=== PATIENT | female | born 1960 | race African-American/Black ===

== ENCOUNTER 2023-07-13 10:42 | Outpatient (AMB) | payer MEDICARE, MEDICAID, SELFPAY ==
--- NOTE | 2023-07-13 10:49 | A.OFFVIS_ITS ---
Intake VS Expanded 07/13/23 10:50 07/13/23 11:17 Height 5 ft 5 in 5 ft 5 in Weight 210 lb 12.191 oz 211 lb BMI 35.1 35.1 Intake Visit Reasons: DM/LVM Allergies glipizide Allergy (Severe, Verified 07/14/23 13:57) Anaphylaxis insulin lispro [From Humalog U-100 Insulin] Allergy (Intermediate, Verified 07/14/23 13:57) uticaria insulin detemir [From Levemir U-100 Insulin] Allergy (Verified 07/14/23 13:57) hives, uticaria, puritus prednisone Adverse Reaction (Unknown, Verified 07/14/23 13:57) itchiness metformin Adverse Reaction (Verified 07/14/23 13:57) Numbness penicilin Allergy (Unknown, Uncoded 07/14/23 13:57) hives peanut derived Allergy (Uncoded 07/14/23 13:57) Itching HPI Nutrition Presentation Details Pt presents for MNT for T2DM. 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 Herrera at [place] [facility] she is on Tresiba 40 units in AM and 60 in PM and Trulicity 1.5 mg/wk Pt reports monitoring blood sugar in am, BG ranging from 80-140s - did not bring to this appt Sometimes has low bg below 70 and treats by having glass of juice and p.b crackers Typical meal B: coffee with flavored cream with bread and crackers (before 7 am) 9 am bread or yogurt and water L: 11:30 soup (yellow yam, dumpling, beans, noodles , chicken or beef) coconut water or water 4:30 pm: fruit or coffee or juice dinner: [place] noodles with chicken, water or juice food frequency fish: not including fruits: 0-1/d fried foods : 1x/w eating out 1x/wk vegetables: starchy mainly dairy: yogurt 3/wk, pastries: 1/d [id number]-Cm.Jeor Equation Height 5 ft 5 in Weight 211 lb Resting Metabolic Rate 1521.96 Calculated Activity Level Sedentary Calories Needed to Maintain Weight 1826.35 Diagnosis Nutrition problem #1 excessive energy intake As related to (etiology) #1 diagnosis As evidenced by (sign/symptom) #1 knowledge deficit of diet Monitoring/Goals Nutrition problem monitoring level of knowledge/skill and oral fluids Nutrition goal/outcome list 3 CHO foods Outcome progress verbalized understanding Learning/Education Readiness to learn good Stages of change preparation Educational materials provided Yes (meal planning ) Most Recent Diabetes Results: No Data to Display Assessment & Plan Assessment & Plan (1) T2DM (type 2 diabetes mellitus): Code(s): E11.9 - Type 2 diabetes mellitus without complications Plan: Wt: 96 Kg ( 06/2023 ) Est kcal needs as per MSJ: 1800 (40% carb, 30% protein/fat) Est fluid needs as per 30 ml/d: 2900 Est prot per day as per 1 g/kg bw: 96 Recommend fiber intake : 8-10 g per day and gradually increase to 25-28 g per day for women and 35-38 g for men or as tolerated Recommend sodium intake per day : less than 2000 mg Educated patient on: ( R = reviewed V = verbalizes understanding N/R = needs review N/A = not applicable * Food sources of carbohydrate, adequate serving sizes and its role in various health conditions: R * Differences between complex carbohydrates a simple carbohydrates, role of fiber in diet: R * Lean protein sources of foods: R * Differences between types of fats and role in diet (mono on saturated fat fatty acids, saturated fatty acids, trans fats): N/R * Food sources of sodium in salt and healthy modifications for heart health in kidney health: NR * Vitamins and minerals: N/R * Healthy plate method concept: R * Physical activity: Benefits a precaution: N/R * Hypoglycemia protocol (rule of 15): R, V- rule of 15 * Dietary prevention of Hyperglycemia: R Patient Instructions: Reduce on total carb to less than 60 g at a meal Dilute juice with water, working on reducing sugar from beverages Treat low blood sugar (sugar less than 70) with 1/2 cup of juice (15 g of carbs) , wait 15 minutes and recheck your blood sugar. Repeat treatment If blood sugar continues below 70. Notify your doctor of any low blood sugar for further assessment Coding Level of Care Code Nutr Indiv Intake (31373) Diagnoses T2DM (type 2 diabetes mellitus) E11.9 Time Spent (min) 30
[2023-07-13 10:50] VITALS: BMI 35.1
[2023-07-14 14:03] VITALS: BMI 35.1
== END 2023-07-13 11:42 | disposition home or self-care (01) ==
PROVIDERS: PCP Internal Medicine; Visit Provider Dietitian, Registered
DX: E11.9 Type 2 diabetes mellitus without complications (principal)

== ENCOUNTER → 2023-07-13 10:42 | Outpatient (BNVA) | payer MEDICARE, MEDICAID, SELFPAY | PROVIDERS: PCP Internal Medicine; Visit Provider Dietitian, Registered | DX: E11.9 Type 2 diabetes mellitus without complications (principal) | CPT/HCPCS: 97802 ==

== ENCOUNTER 2023-08-24 10:54 | Outpatient (AMB) | payer MEDICARE, MEDICAID, SELFPAY ==
[2023-08-24 11:03] VITALS: BMI 34.7
--- NOTE | 2023-08-24 11:03 | A.OFFVIS_ITS ---
Intake VS Expanded 08/24/23 11:03 Height 5 ft 5 in Weight 208 lb 12.444 oz BMI 34.7 Intake Visit Reasons: T2DM/LVM Allergies glipizide Allergy (Severe, Verified 07/14/23 13:57) Anaphylaxis insulin lispro [From Humalog U-100 Insulin] Allergy (Intermediate, Verified 07/14/23 13:57) uticaria insulin detemir [From Levemir U-100 Insulin] Allergy (Verified 07/14/23 13:57) hives, uticaria, puritus prednisone Adverse Reaction (Unknown, Verified 07/14/23 13:57) itchiness metformin Adverse Reaction (Verified 07/14/23 13:57) Numbness penicilin Allergy (Unknown, Uncoded 07/14/23 13:57) hives peanut derived Allergy (Uncoded 07/14/23 13:57) Itching Medication List - Last Reconciled 08/24/[address], LDN insulin degludec (Tresiba FlexTouch U-100 insulin) 100 units subcut DAILY HPI Nutrition Presentation Details Pt presents for MNT f/u for T2DM Patient reports working on meal planning and following healthy plate method every day. 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 Pt reports takign Tresiba 40 units in AM and 60 units in PM Trulicity once a week 1.5 wk Pt reports trying meal replacement but dd not like Today will review low-sodium concepts Most Recent Diabetes Results: No Data to Display Assessment & Plan Assessment & Plan (1) T2DM (type 2 diabetes mellitus): Code(s): E11.9 - Type 2 diabetes mellitus without complications Plan: Wt: 96 Kg ( 06/2023 ) 95 kg ( 08/2023) Est kcal needs as per MSJ: 1800 (40% carb, 30% protein/fat) Est fluid needs as per 30 ml/d: 2900 Est prot per day as per 1 g/kg bw: 96 Recommend fiber intake : 8-10 g per day and gradually increase to 25-28 g per day for women and 35-38 g for men or as tolerated Recommend sodium intake per day : less than 2000 mg Educated patient on: ( R = reviewed V = verbalizes understanding N/R = needs review N/A = not applicable * Food sources of carbohydrate, adequate serving sizes and its role in various health conditions: R * Differences between complex carbohydrates a simple carbohydrates, role of fiber in diet: R * Lean protein sources of foods: R * Differences between types of fats and role in diet (mono on saturated fat fatty acids, saturated fatty acids, trans fats): N/R * Food sources of sodium in salt and healthy modifications for heart health in kidney health: NR * Vitamins and minerals: N/R * Healthy plate method concept: R * Physical activity: Benefits a precaution: N/R * Hypoglycemia protocol (rule of 15): R, V- rule of 15 * Dietary prevention of Hyperglycemia: R Patient Instructions: Be mindful of high salt foods, reduced total sodium to less than 600 mg per day (by reading food labels, choosing low-sodium food options and reducing portion size Choose a fruit instead of pastries to reduce sodium intake Be mindful of sodium eating cheese and highly processed foods Keep physically active as able, goal 150 minutes per week Coding Level of Care Code Nutr Indiv Subseq (36070) Diagnoses T2DM (type 2 diabetes mellitus) E11.9 Time Spent (min) 30
== END 2023-08-24 11:55 | disposition home or self-care (01) ==
PROVIDERS: PCP Internal Medicine; Visit Provider Dietitian, Registered
DX: E11.9 Type 2 diabetes mellitus without complications (principal)

== ENCOUNTER → 2023-08-24 10:54 | Outpatient (BNVA) | payer MEDICARE, MEDICAID, SELFPAY | PROVIDERS: PCP Internal Medicine; Visit Provider Dietitian, Registered | DX: E11.9 Type 2 diabetes mellitus without complications (principal) | CPT/HCPCS: 97803 ==